=== PATIENT | female | born 1990 | race Caucasian/White ===

== ENCOUNTER 2024-04-06 18:33 | Emergency (ER) | payer MEDICAID ==
[~2024-04-06] VITALS: Ht 160 cm; Wt 46.8 kg
[2024-04-06 19:36] LABS: BASOPHILS % (AUTO) 0.7 % (0.0-2.0); EOSINOPHILS % (AUTO) 0.4 % (1.0-6.0); HEMATOCRIT 44.4 % (36-46); HEMOGLOBIN 15.1 g/dL (12.0-16.0); LYMPHOCYTES # (AUTO) 2.6 K/uL (1.0-4.8); LYMPHOCYTES % (AUTO) 28.2 % (22.0-44.0); MEAN CORPUSCULAR HEMOGLOBIN 31.6 pg (26.0-34.0); MEAN CORPUSCULAR HGB CONC 34.1 G/dL (31.0-37.0); MEAN CORPUSCULAR VOLUME 93 fL (80-100); MONOCYTES # (AUTO) 0.4 K/uL (0.1-1.0); MONOCYTES % (AUTO) 4.1 % (2.0-9.0); NEUTROPHILS # (AUTO) 6.2 K/uL (1.8-7.7); NEUTROPHILS % (AUTO) 66.6 % (40.0-70.0); PLATELET COUNT (AUTO) 303 K/uL (150-450); RED BLOOD CELL COUNT(AUTO) 4.79 MIL/uL (4.00-5.20); RED CELL DISTRIBUTION WIDTH 12.8 % (11.5-14.5); WHITE BLOOD COUNT (AUTO) 9.3 K/uL (4.5-11.0)
[2024-04-06] MEDS: OMEPRAZOLE 20 MG CAPSULE PO ONE (19:54)
[2024-04-06] MEDS: ACETAMINOPHEN 500 MG TABLET PO ONE (19:54)
[2024-04-06 19:55] LABS: TROPONIN I-HIGH SENSITIVITY Less Than 4 ng/L (<51)
[2024-04-06 19:58] LABS: B-TYPE NATRIURETIC PEPTIDE 11 pg/mL (0-100)
[2024-04-06 20:03] LABS: ALANINE AMINOTRANSFERASE 11 U/L (12-78); ALBUMIN 4.3 g/dL (3.4-5.0); ALKALINE PHOSPHATASE 56 U/L (46-116); ANION GAP 11 mmol/L (8-16); ASPARTATE AMINOTRANSFERASE 21 U/L (15-37); BILIRUBIN,TOTAL 0.6 mg/dL (0.1-1.0); CALCIUM, TOTAL 9.4 mg/dL (8.8-10.5); CARBON DIOXIDE 24 mmol/L (22-29); CHLORIDE 102 mmol/L (98-107); CREATININE 0.91 mg/dL (0.60-1.30); GLOMERULAR FILTR. RATE CALC > 60 mL/min (>60); GLUCOSE,RANDOM 108 mg/dL (70-110); SODIUM SERUM 137 mmol/L (136-145); TOTAL PROTEIN, SERUM 7.8 g/dL (6.4-8.2); UREA NITROGEN, BLOOD 12 mg/dL (7-18)
[2024-04-06 20:06] LABS: POTASSIUM 2.6 mmol/L (3.5-5.1)
[2024-04-06] MEDS: KETOROLAC TROMETHAMINE 30 MG/ML VIAL IVP ONE (20:56)
[2024-04-06] MEDS: POTASSIUM CHLORIDE 20 MEQ ER TABLET PO ONE (20:56)
[2024-04-06 21:10] LABS: PH,URINE DRUG SCREEN 5.5 (5.0-8.0)
[2024-04-06 21:18] LABS: ALCOHOL, URINE DRUG SCREEN NEGATIVE (NEGATIVE); AMPHET/METH SCREEN,URINE NEGATIVE (NEGATIVE); BARBITURATE SCREEN, URINE NEGATIVE (NEGATIVE); BENZODIAZEPINES SCREEN,URINE NEGATIVE (NEGATIVE); CANNABINOID SCREEN,URINE NEGATIVE (NEGATIVE); COCAINE SCREEN,URINE NEGATIVE (NEGATIVE); METHADONE SCREEN, URINE NEGATIVE (NEGATIVE); OPIATE SCREEN,URINE NEGATIVE (NEGATIVE); PHENCYCLIDINE SCREEN,URINE NEGATIVE (NEGATIVE)
[2024-04-06] MEDS ORDERED: SLOWK8 PO (21:47)
[2024-04-06] MEDS ORDERED: IBUP-1554 PO (21:47)
[2024-04-06] MEDS ORDERED: ACET-66 PO (21:47)
[2024-04-06 22:35] VITALS: BP 119/78; PULSE 68; RESP 18; TEMP 97.3; O2SAT 99
== END 2024-04-06 23:00 | disposition home or self-care (01) ==
LOC: EMS 18:33
DX: R07.89 Other chest pain (principal); E87.6 Hypokalemia; R44.0 Auditory hallucinations
CPT/HCPCS: 99285; 96374; 71045; 80048; 80076; 83880; 84484; 84703; 85025; 36415; 93005; 80307; J1885